=== PATIENT | male | born 1965 | race Caucasian/White ===

== ENCOUNTER 2021-09-01 22:56 | Inpatient (IN) ==
[2021-09-01 23:40] LABS: Basophils % 0.3 %; Hematocrit 40.1 % (37.5-50.1); Hemoglobin 13.4 g/dL (12.9-16.9); Immature Granulocytes % 1.7 % (0-4); Lymphocytes # 0.3 K/mcL (0.6-4.6); Lymphocytes % 8.9 %; Mean Corpuscular HGB Conc 33.4 g/dL (31.6-35.5); Mean Corpuscular Hemoglobin 28.7 pg (28.0-33.3); Mean Corpuscular Volume 85.9 fL (83.0-100.0); Mean Platelet Volume 8.6 fL (9.4-12.4); Monocytes # 0.3 K/mcL (0.0-1.3); Monocytes % 7.8 %; Platelet Count 177 K/mcL (140-400); Red Blood Count 4.67 M/mcL (4.19-5.50); Red Cell Distribution Width 12.5 % (11.5-14.5); Segmented Neutrophils % 81.3 %; White Blood Count 3.5 K/mcL (4.3-11.1)
[2021-09-02 00:01] LABS: Neutrophils # 2.9 K/mcL (1.6-8.9)
[2021-09-02 00:02] LABS: VBG HCO3 26 mEq/L (21-27); VBG PCO2 41 mmHg (41-51); VBG PH 7.41 pH Units (7.32-7.42); VBG PO2 44 mmHg (25-50)
[2021-09-02 00:09] LABS: Alanine Aminotransferase 33 Units/L (7-52); Albumin 3.7 g/dL (3.5-5.7); Albumin/Globulin Ratio 1.5 (1.1-2.2); Alkaline Phosphatase 61 Units/L (34-104); Aspartate Amino Transferase 41 Units/L (13-39); BUN/Creatinine Ratio 15 (6-26); Bilirubin,Direct 0.2 mg/dL (0.0-0.2); Bilirubin,Indirect 0.4 mg/dL (0.0-1.0); Bilirubin,Total 0.6 mg/dL (0.3-1.0); Blood Urea Nitrogen 13 mg/dL (6-20); Calcium 8.9 mg/dL (8.6-10.3); Carbon Dioxide 28 mEq/L (23-29); Chloride 94 mEq/L (98-107); Globulin 2.5 g/dL (2.4-3.5); Glucose 257 mg/dL (70-105); Osmolality,Calculated 281 (280-300); Potassium 3.8 mEq/L (3.5-5.1); Sodium 131 mEq/L (136-145); Total Protein 6.2 g/dL (6.4-8.9); eGFR For African Americans > 60 (> 60); eGFR For Non-African Americans > 60 (> 60)
[2021-09-02 00:10] LABS: Troponin I < 0.03 ng/mL (< 0.04)
[2021-09-02] MEDS ORDERED: Ondansetron 4 MG/2 ML VIAL IVP PRN (00:19)
[2021-09-02] MEDS ORDERED: *HR* HYDROcodone/Acet 5/325 mg TABLET PO PRN (00:19)
[2021-09-02] MEDS ORDERED: Naloxone 0.4 MG/ML INJ IVP PRN (00:19)
[2021-09-02] MEDS ORDERED: Acetaminophen 325 MG TABLET PO PRN (00:19)
[2021-09-02] MEDS ORDERED: D5% in Water 1,000 ML IVC PRN (00:20)
[2021-09-02] MEDS ORDERED: Dextrose Gel 15 GM/37.5 ML TUBE PO PRN ×2 (00:20)
[2021-09-02] MEDS ORDERED: *HR* Dextrose 50 % in Water (Syg) 50 ML SYRINGE IVP PRN (00:20)
[2021-09-02] MEDS ORDERED: Insulin DETEMIR 100 UNIT/ML per UNIT SUBQ ONE (00:30)
[2021-09-02] MEDS: *HR* Enoxaparin 40 MG/0.4 ML SYRINGE SQ SCH (05:38)
[2021-09-02 07:17] LABS: Basophils % 0.3 %; Hematocrit 42.6 % (37.5-50.1); Hemoglobin 13.9 g/dL (12.9-16.9); Immature Granulocytes % 1.6 % (0-4); Lymphocytes # 0.3 K/mcL (0.6-4.6); Lymphocytes % 8.3 %; Mean Corpuscular HGB Conc 32.6 g/dL (31.6-35.5); Mean Corpuscular Hemoglobin 28.5 pg (28.0-33.3); Mean Corpuscular Volume 87.3 fL (83.0-100.0); Mean Platelet Volume 8.8 fL (9.4-12.4); Monocytes # 0.2 K/mcL (0.0-1.3); Monocytes % 5.4 %; Neutrophils # 2.6 K/mcL (1.6-8.9); Platelet Count 196 K/mcL (140-400); Red Blood Count 4.88 M/mcL (4.19-5.50); Red Cell Distribution Width 12.1 % (11.5-14.5); Segmented Neutrophils % 84.4 %; White Blood Count 3.1 K/mcL (4.3-11.1)
[2021-09-02 07:21] LABS: INR 1.2; Prothrombin Time 13.5 Seconds (9.4-12.1)
[2021-09-02 07:32] LABS: Alanine Aminotransferase 33 Units/L (7-52); Albumin 3.7 g/dL (3.5-5.7); Alkaline Phosphatase 63 Units/L (34-104); Aspartate Amino Transferase 38 Units/L (13-39); BUN/Creatinine Ratio 16 (6-26); Bilirubin,Total 0.5 mg/dL (0.3-1.0); Blood Urea Nitrogen 15 mg/dL (6-20); Calcium 9.3 mg/dL (8.6-10.3); Carbon Dioxide 28 mEq/L (23-29); Chloride 95 mEq/L (98-107); Globulin 3.6 g/dL (2.4-3.5); Glucose 302 mg/dL (70-105); Osmolality,Calculated 290 (280-300); Potassium 4.4 mEq/L (3.5-5.1); Sodium 134 mEq/L (136-145); Total Protein 7.3 g/dL (6.4-8.9); eGFR For African Americans > 60 (> 60); eGFR For Non-African Americans > 60 (> 60)
[2021-09-02 07:55] LABS: Lactate Dehydrogenase 269 Units/L (140-271)
[2021-09-02] MEDS: Insulin LISPRO 300 UNITS/3 ML VIAL SUBQ SCH ×3 (08:50→16:52)
[2021-09-02] MEDS ORDERED: Dexamethasone Sodium Phos/PF 10 MG/ML VIAL IVP SCH (09:00)
[2021-09-02 13:03] LABS: C-Reactive Protein 164 mg/L (Less than 10)
[2021-09-02] MEDS ORDERED: Dexamethasone Sodium Phos/PF 10 MG/ML VIAL IVP ONE (15:18)
[2021-09-02] MEDS: Ipratropium 1 PUFF INHALER IH SCH ×2 (16:06→20:44)
[2021-09-02] MEDS: ALOGLIPTIN BENZOATE 25 MG PO SCH (16:11)
[2021-09-02] MEDS: clonazePAM 1 MG TABLET PO SCH (16:17)
[2021-09-02] MEDS: lisinopriL 20 MG TABLET PO SCH (16:17)
[2021-09-02] MEDS: Benzonatate 100 MG CAPSULE PO SCH ×2 (16:17→20:47)
[2021-09-02] MEDS: Azithromycin 500 MG in 0.9 % Sodium Chloride 250 ML IVPB SCH (16:32)
[2021-09-02 16:46] LABS: Bilirubin,Urine Negative (Negative); Blood,Urine Trace-lysed (Negative); Clarity,Urine Clear (Clear); Color,Urine Yellow (Yellow); Glucose,Urine (UA) 500 mg/dL (Normal); Ketones,Urine 40 mg/dL (Negative); Leukocyte Esterase,Urine Negative (Negative); Nitrite,Urine Negative (Negative); Protein,Urine Trace mg/dL (Neg-Trace); Specific Gravity,Urine 1.025 (1.010-1.025); Urobilinogen,Urine Normal (Normal)
[2021-09-02] MEDS: cefTRIAXone 1,000 MG in 0.9 % Sodium Chloride Mini Bag 100 ML IVP SCH (17:56)
[2021-09-02] MEDS: QUEtiapine Fumarate 100 MG TABLET PO SCH (20:48)
[2021-09-02] MEDS: Melatonin 3 MG TABLET PO PRN (20:48)
[2021-09-02] MEDS: Insulin DETEMIR 100 UNIT/ML X5UNITS SUBQ SCH (20:48)
[2021-09-02] MEDS ORDERED: Insulin DETEMIR 100 UNIT/ML X5UNITS SUBQ SCH (21:00)
[2021-09-02] MEDS ORDERED: Insulin LISPRO 300 UNITS/3 ML VIAL SUBQ SCH (21:00)
[2021-09-02] MEDS: BuPROPion SR (12 HR) 150 MG TABLET PO SCH (21:09)
[2021-09-03] MEDS: Ipratropium 1 PUFF INHALER IH SCH ×6 (02:36→20:44)
[2021-09-03] MEDS: *HR* Enoxaparin 40 MG/0.4 ML SYRINGE SQ SCH (06:15)
[2021-09-03 06:24] LABS: Hematocrit 38.9 % (37.5-50.1); Hemoglobin 12.8 g/dL (12.9-16.9); Mean Corpuscular HGB Conc 32.9 g/dL (31.6-35.5); Mean Corpuscular Hemoglobin 28.6 pg (28.0-33.3); Mean Corpuscular Volume 86.8 fL (83.0-100.0); Mean Platelet Volume 8.9 fL (9.4-12.4); Platelet Count 259 K/mcL (140-400); Red Blood Count 4.48 M/mcL (4.19-5.50); Red Cell Distribution Width 12.4 % (11.5-14.5); White Blood Count 6.9 K/mcL (4.3-11.1)
[2021-09-03 06:47] LABS: Alanine Aminotransferase 29 Units/L (7-52); Albumin 3.5 g/dL (3.5-5.7); Albumin/Globulin Ratio 1.1 (1.1-2.2); Alkaline Phosphatase 55 Units/L (34-104); Aspartate Amino Transferase 28 Units/L (13-39); BUN/Creatinine Ratio 32 (6-26); Bilirubin,Total 0.3 mg/dL (0.3-1.0); Blood Urea Nitrogen 24 mg/dL (6-20); Calcium 9.2 mg/dL (8.6-10.3); Carbon Dioxide 27 mEq/L (23-29); Chloride 96 mEq/L (98-107); Globulin 3.2 g/dL (2.4-3.5); Glucose 312 mg/dL (70-105); Magnesium 2.2 mg/dL (1.6-2.6); Osmolality,Calculated 294 (280-300); Potassium 3.9 mEq/L (3.5-5.1); Sodium 134 mEq/L (136-145); Total Protein 6.7 g/dL (6.4-8.9); eGFR For African Americans > 60 (> 60); eGFR For Non-African Americans > 60 (> 60)
[2021-09-03] MEDS: Insulin LISPRO 300 UNITS/3 ML VIAL SUBQ SCH ×5 (08:00→20:12)
[2021-09-03] MEDS: BuPROPion SR (12 HR) 150 MG TABLET PO SCH ×2 (08:03→20:11)
[2021-09-03] MEDS: Benzonatate 100 MG CAPSULE PO SCH ×3 (08:03→20:10)
[2021-09-03] MEDS: lisinopriL 20 MG TABLET PO SCH (08:04)
[2021-09-03] MEDS: clonazePAM 1 MG TABLET PO SCH (08:04)
[2021-09-03] MEDS: cefTRIAXone 1,000 MG in 0.9 % Sodium Chloride Mini Bag 100 ML IVP SCH (08:05)
[2021-09-03] MEDS: Insulin DETEMIR 100 UNIT/ML X5UNITS SUBQ SCH (08:23)
[2021-09-03 08:33] LABS: Ferritin 801 ng/mL (20-250)
[2021-09-03] MEDS ORDERED: Dexamethasone Sodium Phos/PF 10 MG/ML VIAL IVP SCH (09:00)
[2021-09-03 09:57] LABS: Estimated Average Glucose 269 mg/dl
[2021-09-03 10:00] LABS: C-Reactive Protein 91 mg/L (Less than 10)
[2021-09-03] MEDS: ALOGLIPTIN BENZOATE 25 MG PO SCH (10:15)
[2021-09-03] MEDS ORDERED: Dexamethasone Sodium Phos/PF 10 MG/ML VIAL IVP ONE (11:19)
[2021-09-03] MEDS ORDERED: Furosemide 20 MG/2 ML VIAL IVP ONE (11:20)
[2021-09-03] MEDS ORDERED: Remdesivir 200 MG in 0.9 % Sodium Chloride 100 ML IVPB ONE (14:43)
[2021-09-03] MEDS: Azithromycin 500 MG in 0.9 % Sodium Chloride 250 ML IVPB SCH (15:39)
[2021-09-03] MEDS: QUEtiapine Fumarate 100 MG TABLET PO SCH (20:10)
[2021-09-03] MEDS: Melatonin 3 MG TABLET PO PRN (20:11)
[2021-09-03] MEDS ORDERED: Insulin DETEMIR 100 UNIT/ML per UNIT SUBQ ONE (21:00)
[2021-09-03] MEDS ORDERED: Insulin Human Regular 10 UNIT in 0.9 % Sodium Chloride 10 ML IV ONE (22:25)
[2021-09-04] MEDS: Ipratropium 1 PUFF INHALER IH SCH ×6 (03:15→18:49)
[2021-09-04] MEDS: *HR* Enoxaparin 40 MG/0.4 ML SYRINGE SQ SCH (04:23)
[2021-09-04 06:17] LABS: Albumin 3.4 g/dL (3.5-5.7); Albumin/Globulin Ratio 1.1 (1.1-2.2); Bilirubin,Direct 0.1 mg/dL (0.0-0.2); Bilirubin,Indirect 0.3 mg/dL (0.0-1.0); Bilirubin,Total 0.4 mg/dL (0.3-1.0); Globulin 3.2 g/dL (2.4-3.5); Total Protein 6.6 g/dL (6.4-8.9)
[2021-09-04] MEDS: clonazePAM 1 MG TABLET PO SCH (08:45)
[2021-09-04] MEDS: cefTRIAXone 1,000 MG in 0.9 % Sodium Chloride Mini Bag 100 ML IVP SCH (08:45)
[2021-09-04] MEDS: ALOGLIPTIN BENZOATE 25 MG PO SCH (08:46)
[2021-09-04] MEDS: BuPROPion SR (12 HR) 150 MG TABLET PO SCH ×2 (08:46→21:00)
[2021-09-04] MEDS: Benzonatate 100 MG CAPSULE PO SCH ×3 (08:46→21:00)
[2021-09-04] MEDS: lisinopriL 20 MG TABLET PO SCH (08:46)
[2021-09-04] MEDS: Insulin LISPRO 300 UNITS/3 ML VIAL SUBQ SCH ×4 (08:47→20:54)
[2021-09-04] MEDS: Dexamethasone Sodium Phos/PF 10 MG/ML VIAL IVP SCH (08:52)
[2021-09-04] MEDS ORDERED: Insulin DETEMIR 100 UNIT/ML X5UNITS SUBQ SCH (09:00)
[2021-09-04] MEDS ORDERED: Remdesivir 100 MG in 0.9 % Sodium Chloride 100 ML IVPB SCH (15:00)
[2021-09-04] MEDS: Azithromycin 500 MG in 0.9 % Sodium Chloride 250 ML IVPB SCH (17:03)
[2021-09-04] MEDS: QUEtiapine Fumarate 100 MG TABLET PO SCH (21:01)
[2021-09-04] MEDS: Insulin DETEMIR 100 UNIT/ML X5UNITS SUBQ SCH (21:01)
[2021-09-05] MEDS: Ipratropium 1 PUFF INHALER IH SCH ×7 (04:44→23:11)
[2021-09-05 04:47] LABS: Hematocrit 39.6 % (37.5-50.1); Hemoglobin 12.8 g/dL (12.9-16.9); Mean Corpuscular HGB Conc 32.3 g/dL (31.6-35.5); Mean Corpuscular Hemoglobin 28.1 pg (28.0-33.3); Mean Corpuscular Volume 86.8 fL (83.0-100.0); Mean Platelet Volume 8.6 fL (9.4-12.4); Platelet Count 321 K/mcL (140-400); Red Blood Count 4.56 M/mcL (4.19-5.50); Red Cell Distribution Width 12.2 % (11.5-14.5); White Blood Count 6.4 K/mcL (4.3-11.1)
[2021-09-05] MEDS: *HR* Enoxaparin 40 MG/0.4 ML SYRINGE SQ SCH (05:00)
[2021-09-05 05:01] LABS: Albumin 3.4 g/dL (3.5-5.7); Albumin/Globulin Ratio 1.1 (1.1-2.2); Bilirubin,Direct 0.1 mg/dL (0.0-0.2); Bilirubin,Indirect 0.3 mg/dL (0.0-1.0); Bilirubin,Total 0.4 mg/dL (0.3-1.0); Globulin 3.1 g/dL (2.4-3.5); Total Protein 6.5 g/dL (6.4-8.9)
[2021-09-05 05:18] LABS: Alanine Aminotransferase 58 Units/L (7-52); Albumin 3.4 g/dL (3.5-5.7); Albumin/Globulin Ratio 1.1 (1.1-2.2); Alkaline Phosphatase 58 Units/L (34-104); Aspartate Amino Transferase 44 Units/L (13-39); BUN/Creatinine Ratio 29 (6-26); Bilirubin,Total 0.4 mg/dL (0.3-1.0); Blood Urea Nitrogen 23 mg/dL (6-20); Calcium 9.1 mg/dL (8.6-10.3); Carbon Dioxide 30 mEq/L (23-29); Chloride 97 mEq/L (98-107); Globulin 3.1 g/dL (2.4-3.5); Glucose 221 mg/dL (70-105); Magnesium 2.1 mg/dL (1.6-2.6); Osmolality,Calculated 292 (280-300); Potassium 4.1 mEq/L (3.5-5.1); Sodium 136 mEq/L (136-145); Total Protein 6.5 g/dL (6.4-8.9); eGFR For African Americans > 60 (> 60); eGFR For Non-African Americans > 60 (> 60)
[2021-09-05] MEDS: Insulin DETEMIR 100 UNIT/ML X5UNITS SUBQ SCH ×2 (07:50→20:37)
[2021-09-05] MEDS: Benzonatate 100 MG CAPSULE PO SCH ×3 (07:51→20:51)
[2021-09-05] MEDS: clonazePAM 1 MG TABLET PO SCH (07:52)
[2021-09-05] MEDS: lisinopriL 20 MG TABLET PO SCH (07:52)
[2021-09-05] MEDS: BuPROPion SR (12 HR) 150 MG TABLET PO SCH ×2 (07:52→20:37)
[2021-09-05] MEDS: Dexamethasone Sodium Phos/PF 10 MG/ML VIAL IVP SCH (07:53)
[2021-09-05] MEDS: cefTRIAXone 1,000 MG in 0.9 % Sodium Chloride Mini Bag 100 ML IVP SCH (07:53)
[2021-09-05] MEDS: Insulin LISPRO 300 UNITS/3 ML VIAL SUBQ SCH ×4 (07:54→20:36)
[2021-09-05] MEDS: ALOGLIPTIN BENZOATE 25 MG PO SCH (07:56)
[2021-09-05 11:43] LABS: C-Reactive Protein 32 mg/L (Less than 10)
[2021-09-05] MEDS: Azithromycin 500 MG in 0.9 % Sodium Chloride 250 ML IVPB SCH (15:15)
[2021-09-05] MEDS: QUEtiapine Fumarate 100 MG TABLET PO SCH (20:38)
[2021-09-06] MEDS: Ipratropium 1 PUFF INHALER IH SCH ×5 (03:51→21:53)
[2021-09-06 05:40] LABS: Albumin 3.5 g/dL (3.5-5.7); Albumin/Globulin Ratio 1.1 (1.1-2.2); Bilirubin,Direct 0.1 mg/dL (0.0-0.2); Bilirubin,Indirect 0.3 mg/dL (0.0-1.0); Bilirubin,Total 0.4 mg/dL (0.3-1.0); Globulin 3.3 g/dL (2.4-3.5); Total Protein 6.8 g/dL (6.4-8.9)
[2021-09-06] MEDS: *HR* Enoxaparin 40 MG/0.4 ML SYRINGE SQ SCH (06:22)
[2021-09-06] MEDS: Insulin LISPRO 300 UNITS/3 ML VIAL SUBQ SCH ×4 (07:32→20:38)
[2021-09-06] MEDS: ALOGLIPTIN BENZOATE 25 MG PO SCH (07:33)
[2021-09-06] MEDS: Dexamethasone Sodium Phos/PF 10 MG/ML VIAL IVP SCH (09:44)
[2021-09-06] MEDS: Insulin DETEMIR 100 UNIT/ML X5UNITS SUBQ SCH ×2 (09:48→20:38)
[2021-09-06] MEDS: clonazePAM 1 MG TABLET PO SCH (09:50)
[2021-09-06] MEDS: lisinopriL 20 MG TABLET PO SCH (09:50)
[2021-09-06] MEDS: BuPROPion SR (12 HR) 150 MG TABLET PO SCH ×2 (09:50→20:37)
[2021-09-06] MEDS: Benzonatate 100 MG CAPSULE PO SCH ×3 (09:50→20:37)
[2021-09-06] MEDS: cefTRIAXone 1,000 MG in 0.9 % Sodium Chloride Mini Bag 100 ML IVP SCH (09:52)
[2021-09-06] MEDS ORDERED: Perflutren Lipid Microsphere 1.3 ML in 0.9 % Sodium Chloride 8.7 ML IVP PRN (10:51)
[2021-09-06] MEDS: Furosemide 40 MG TABLET PO SCH (14:49)
[2021-09-06] MEDS: Melatonin 3 MG TABLET PO PRN (20:37)
[2021-09-06] MEDS: QUEtiapine Fumarate 100 MG TABLET PO SCH (20:37)
[2021-09-07] MEDS: Ipratropium 1 PUFF INHALER IH SCH ×6 (00:24→20:46)
[2021-09-07 04:39] LABS: Basophils % 0.4 %; Hematocrit 41.7 % (37.5-50.1); Hemoglobin 13.8 g/dL (12.9-16.9); Immature Granulocytes % 3.7 % (0-4); Lymphocytes # 0.8 K/mcL (0.6-4.6); Lymphocytes % 8.6 %; Mean Corpuscular HGB Conc 33.1 g/dL (31.6-35.5); Mean Corpuscular Hemoglobin 28.3 pg (28.0-33.3); Mean Corpuscular Volume 85.6 fL (83.0-100.0); Mean Platelet Volume 8.5 fL (9.4-12.4); Monocytes # 0.6 K/mcL (0.0-1.3); Monocytes % 5.8 %; Neutrophils # 7.8 K/mcL (1.6-8.9); Platelet Count 415 K/mcL (140-400); Red Blood Count 4.87 M/mcL (4.19-5.50); Red Cell Distribution Width 12.1 % (11.5-14.5); Segmented Neutrophils % 81.5 %; White Blood Count 9.6 K/mcL (4.3-11.1)
[2021-09-07 04:56] LABS: Albumin 3.6 g/dL (3.5-5.7); Albumin/Globulin Ratio 1.1 (1.1-2.2); Bilirubin,Direct 0.1 mg/dL (0.0-0.2); Bilirubin,Indirect 0.3 mg/dL (0.0-1.0); Bilirubin,Total 0.4 mg/dL (0.3-1.0); Globulin 3.3 g/dL (2.4-3.5); Total Protein 6.9 g/dL (6.4-8.9)
[2021-09-07] MEDS: *HR* Enoxaparin 40 MG/0.4 ML SYRINGE SQ SCH (05:02)
[2021-09-07 05:16] LABS: Alanine Aminotransferase 121 Units/L (7-52); Albumin 3.6 g/dL (3.5-5.7); Albumin/Globulin Ratio 1.1 (1.1-2.2); Alkaline Phosphatase 68 Units/L (34-104); Aspartate Amino Transferase 48 Units/L (13-39); BUN/Creatinine Ratio 41 (6-26); Bilirubin,Total 0.4 mg/dL (0.3-1.0); Blood Urea Nitrogen 31 mg/dL (6-20); Calcium 9.1 mg/dL (8.6-10.3); Carbon Dioxide 27 mEq/L (23-29); Chloride 97 mEq/L (98-107); Globulin 3.3 g/dL (2.4-3.5); Glucose 248 mg/dL (70-105); Osmolality,Calculated 295 (280-300); Potassium 4.1 mEq/L (3.5-5.1); Sodium 135 mEq/L (136-145); Total Protein 6.9 g/dL (6.4-8.9); eGFR For African Americans > 60 (> 60); eGFR For Non-African Americans > 60 (> 60)
[2021-09-07] MEDS: Insulin DETEMIR 100 UNIT/ML X5UNITS SUBQ SCH (08:30)
[2021-09-07] MEDS: lisinopriL 20 MG TABLET PO SCH (08:31)
[2021-09-07] MEDS: Dexamethasone Sodium Phos/PF 10 MG/ML VIAL IVP SCH (08:31)
[2021-09-07] MEDS: clonazePAM 1 MG TABLET PO SCH (08:31)
[2021-09-07] MEDS: Furosemide 40 MG TABLET PO SCH (08:31)
[2021-09-07] MEDS: BuPROPion SR (12 HR) 150 MG TABLET PO SCH ×2 (08:31→20:45)
[2021-09-07] MEDS: Benzonatate 100 MG CAPSULE PO SCH ×3 (08:31→20:45)
[2021-09-07] MEDS: ALOGLIPTIN BENZOATE 25 MG PO SCH (08:34)
[2021-09-07] MEDS: Insulin LISPRO 300 UNITS/3 ML VIAL SUBQ SCH ×4 (08:52→20:47)
[2021-09-07] MEDS: Furosemide 40 MG/4 ML VIAL IVP SCH (16:42)
[2021-09-07] MEDS: QUEtiapine Fumarate 100 MG TABLET PO SCH (20:45)
[2021-09-07] MEDS: Melatonin 3 MG TABLET PO PRN (20:45)
[2021-09-07] MEDS ORDERED: Insulin DETEMIR 100 UNIT/ML per UNIT SUBQ ONE (21:00)
[2021-09-08] MEDS: Ipratropium 1 PUFF INHALER IH SCH ×7 (01:06→23:52)
[2021-09-08] MEDS: *HR* Enoxaparin 40 MG/0.4 ML SYRINGE SQ SCH (04:58)
[2021-09-08 05:55] LABS: Albumin 3.7 g/dL (3.5-5.7); Albumin/Globulin Ratio 1.1 (1.1-2.2); Bilirubin,Direct 0.1 mg/dL (0.0-0.2); Bilirubin,Indirect 0.4 mg/dL (0.0-1.0); Bilirubin,Total 0.5 mg/dL (0.3-1.0); Globulin 3.3 g/dL (2.4-3.5)
[2021-09-08] MEDS: Benzonatate 100 MG CAPSULE PO SCH ×3 (08:10→20:59)
[2021-09-08] MEDS: clonazePAM 1 MG TABLET PO SCH (08:10)
[2021-09-08] MEDS: BuPROPion SR (12 HR) 150 MG TABLET PO SCH ×2 (08:10→20:59)
[2021-09-08] MEDS: Furosemide 40 MG/4 ML VIAL IVP SCH ×2 (08:10→17:15)
[2021-09-08] MEDS: Insulin LISPRO 300 UNITS/3 ML VIAL SUBQ SCH ×4 (08:11→21:00)
[2021-09-08] MEDS: Dexamethasone Sodium Phos/PF 10 MG/ML VIAL IVP SCH (08:11)
[2021-09-08] MEDS: Insulin DETEMIR 100 UNIT/ML X5UNITS SUBQ SCH ×2 (08:11→21:00)
[2021-09-08] MEDS: ALOGLIPTIN BENZOATE 25 MG PO SCH (09:28)
[2021-09-08] MEDS: lisinopriL 20 MG TABLET PO SCH (09:29)
[2021-09-08] MEDS: QUEtiapine Fumarate 100 MG TABLET PO SCH (20:58)
[2021-09-08] MEDS: Melatonin 3 MG TABLET PO PRN (21:39)
[2021-09-09] MEDS: Ipratropium 1 PUFF INHALER IH SCH ×5 (03:51→20:29)
[2021-09-09] MEDS: *HR* Enoxaparin 40 MG/0.4 ML SYRINGE SQ SCH (05:00)
[2021-09-09 06:33] LABS: Basophils % 0.4 %; Eosinophils % 0.2 %; Hematocrit 43.8 % (37.5-50.1); Hemoglobin 14.8 g/dL (12.9-16.9); Immature Granulocytes % 3.3 % (0-4); Lymphocytes # 1.4 K/mcL (0.6-4.6); Mean Corpuscular HGB Conc 33.8 g/dL (31.6-35.5); Mean Corpuscular Hemoglobin 28.6 pg (28.0-33.3); Mean Corpuscular Volume 84.7 fL (83.0-100.0); Mean Platelet Volume 8.7 fL (9.4-12.4); Monocytes # 0.8 K/mcL (0.0-1.3); Monocytes % 8.2 %; Neutrophils # 7.4 K/mcL (1.6-8.9); Platelet Count 442 K/mcL (140-400); Red Blood Count 5.17 M/mcL (4.19-5.50); Red Cell Distribution Width 12.3 % (11.5-14.5); Segmented Neutrophils % 73.9 %; White Blood Count 10.1 K/mcL (4.3-11.1)
[2021-09-09 06:47] LABS: Alanine Aminotransferase 136 Units/L (7-52); Albumin 3.6 g/dL (3.5-5.7); Albumin/Globulin Ratio 1.1 (1.1-2.2); Alkaline Phosphatase 68 Units/L (34-104); Aspartate Amino Transferase 45 Units/L (13-39); BUN/Creatinine Ratio 49 (6-26); Bilirubin,Total 0.5 mg/dL (0.3-1.0); Blood Urea Nitrogen 37 mg/dL (6-20); Calcium 8.9 mg/dL (8.6-10.3); Carbon Dioxide 28 mEq/L (23-29); Chloride 92 mEq/L (98-107); Globulin 3.2 g/dL (2.4-3.5); Glucose 196 mg/dL (70-105); Magnesium 2.1 mg/dL (1.6-2.6); Osmolality,Calculated 282 (280-300); Potassium 3.7 mEq/L (3.5-5.1); Sodium 129 mEq/L (136-145); Total Protein 6.8 g/dL (6.4-8.9); eGFR For African Americans > 60 (> 60); eGFR For Non-African Americans > 60 (> 60)
[2021-09-09] MEDS: Insulin LISPRO 300 UNITS/3 ML VIAL SUBQ SCH ×5 (07:30→20:55)
[2021-09-09 08:30] LABS: Ferritin 498 ng/mL (20-250)
[2021-09-09] MEDS: Benzonatate 100 MG CAPSULE PO SCH ×3 (08:41→21:00)
[2021-09-09] MEDS: BuPROPion SR (12 HR) 150 MG TABLET PO SCH ×2 (08:41→21:00)
[2021-09-09] MEDS: Furosemide 40 MG/4 ML VIAL IVP SCH ×2 (08:42→17:14)
[2021-09-09] MEDS: lisinopriL 20 MG TABLET PO SCH (08:43)
[2021-09-09] MEDS: ALOGLIPTIN BENZOATE 25 MG PO SCH (08:43)
[2021-09-09] MEDS: clonazePAM 1 MG TABLET PO SCH (08:43)
[2021-09-09] MEDS ORDERED: Dexamethasone Sodium Phos/PF 10 MG/ML VIAL IVP SCH (09:00)
[2021-09-09] MEDS: Insulin DETEMIR 100 UNIT/ML X5UNITS SUBQ SCH ×2 (09:23→21:01)
[2021-09-09] MEDS: *HR* Metformin 500 MG TABLET PO SCH ×2 (15:05→21:54)
[2021-09-09] MEDS: QUEtiapine Fumarate 100 MG TABLET PO SCH (20:59)
[2021-09-09] MEDS: Melatonin 3 MG TABLET PO PRN (21:10)
[2021-09-10] MEDS: Ipratropium 1 PUFF INHALER IH SCH ×4 (00:12→11:58)
[2021-09-10] MEDS: *HR* Enoxaparin 40 MG/0.4 ML SYRINGE SQ SCH (05:16)
[2021-09-10] MEDS: lisinopriL 20 MG TABLET PO SCH (08:56)
[2021-09-10] MEDS: BuPROPion SR (12 HR) 150 MG TABLET PO SCH (08:56)
[2021-09-10] MEDS: clonazePAM 1 MG TABLET PO SCH (08:57)
[2021-09-10] MEDS: Furosemide 40 MG/4 ML VIAL IVP SCH ×2 (08:57→15:31)
[2021-09-10] MEDS: Benzonatate 100 MG CAPSULE PO SCH ×2 (08:57→15:30)
[2021-09-10] MEDS: *HR* Metformin 500 MG TABLET PO SCH ×2 (08:57→15:31)
[2021-09-10] MEDS: Insulin DETEMIR 100 UNIT/ML X5UNITS SUBQ SCH (08:59)
[2021-09-10] MEDS ORDERED: Dexamethasone Sodium Phos/PF 10 MG/ML VIAL IVP SCH (09:00)
[2021-09-10] MEDS: Insulin LISPRO 300 UNITS/3 ML VIAL SUBQ SCH ×4 (09:00→12:46)
[2021-09-10] MEDS: ALOGLIPTIN BENZOATE 25 MG PO SCH (09:01)
[2021-09-10 11:31] VITALS: BP 109/72; PULSE 88; TEMP 98.8
[2021-09-10 12:06] VITALS: RESP 19; O2SAT 94
== END 2021-09-10 15:56 | disposition home health service (06) | DRG 137 ==
LOC: INPGRE 22:56 → EMEROOGRE 22:56 → INPGRE 09-02 01:10 → SUATTDRO 09-02 15:17 → INPGRE 09-02 18:44
PROVIDERS: ADMIT Internal Medicine; ATTEND Family Medicine